=== PATIENT | female | born 1930 | race Caucasian/White ===

== ENCOUNTER 2016-05-20 17:49 | Emergency (ER) | payer OTHER ==
[~2016-05-20 17:49] MED LIST: CELEXA10 MG PO; HYCET1 ML PO; KEPPRA500 MG PO; LAMICTAL100 MG PO; LORAZEPAM1 MG PO; PLAVIX75 MG PO
--- NOTE | 2016-05-20 20:10 | DIAGNOSTIC IMAGING REPORT ---
PROCEDURE: XR CHEST 1 VIEW INDICATION: CONGESTION, initial encounter TECHNIQUE: Portable AP view 07:02 p.m. COMPARISON: Chest x-ray 01/07/2015 and 06/21/2014. FINDINGS: New mild to moderate bibasilar alveolar opacities with small bilateral pleural effusions and mild pulmonary vascular congestion. Heart size at the upper limits of normal. Bony thorax is unremarkable. IMPRESSION: 1. Borderline cardiomegaly with pulmonary vascular congestion, small bilateral pleural effusion and bibasilar pulmonary edema versus pneumonia
--- NOTE | 2016-05-20 22:11 | DIAGNOSTIC IMAGING REPORT ---
PROCEDURE: CTA THORAX WITH CONTRAST INDICATION: COUGH TECHNIQUE: 76 ml of Isovue 370 was injected intravenously and axial images were obtained of the entire thorax with 3D sagittal and coronal MIP reconstructions. COMPARISON: Chest x-ray 05/20/2016 FINDINGS: No evidence of pulmonary emboli. There are coarse interstitial markings with subpleural fibrosis primarily in both lung bases with mild superimposed patchy alveolar opacities. There are also a few small patchy densities in the upper lobes. There is mild mediastinal and moderate bilateral hilar and subcarinal adenopathy. Tiny bilateral pleural effusions. There is no aortic aneurysm or dissection. Coronary atherosclerosis. Normal heart size. Cholecystectomy. Mild degenerative changes of the spine. IMPRESSION: 1. No evidence of pulmonary emboli 2. Bibasilar scarring and fibrosis with superimposed pneumonia 3. Tiny bilateral pleural effusions 4. Results discussed with Dr. Andersen
--- NOTE | 2016-05-20 23:20 | ED ORDER SUMMARY ---
..... Patient: KARYNA UREÑA OrderSheet [facility] VisitID: [id number] [address] [place], [place] [id number] 85y, F Registration Date/Time: 05/20/2016 ORDER SHEET Weight: 43.0 kg (stated) Allergies: Aspirin, Codeine, Demerol, Petroleum products GENERAL ORDERS: Chest 1V Urgent (18:58 05/20/2016 Rafita Maxwell) (19:05 Clement ER Supervisor Long Goods) CBC w Diff Urgent (18:58 05/20/2016 Rafita Maxwell) (Ack 19:14 LNations ER Tech1) (19:16 HOShaughnessy R.N.) CMP Urgent (18:58 05/20/2016 Rafita Maxwell) (Ack 19:14 LNations ER Tech1) (19:16 HOShaughnessy R.N.) UA-Culture if indicated Urgent (18:58 05/20/2016 Rafita Maxwell) (Ack 19:14 LNations ER Tech1) (20:53 HOShaughnessy R.N.) BNP Urgent (18:58 05/20/2016 Rafita Maxwell) (Ack 19:14 LNations ER Tech1) (19:16 HOShaughnessy R.N.) D-Dimer Urgent (18:58 05/20/2016 Rafita Maxwell) (Ack 19:14 LNations ER Tech1) (19:16 HOShaughnessy R.N.) CTA Thorax w Cont (No) (grf > 50) Urgent (21:17 05/20/2016 Zenia Maxwell) (Ack 21:18 Clement ER Supervisor [employer]s) (22:00 MCampbell) MEDICATION ORDERS: IV FLUIDS: IV Saline Lock (18:58 05/20/2016 Rafita Maxwell) (19:17 HOShaughnessy R.N.) IV NS : initial bolus 500 mL (1000 mL/hr), then 1000 mL/hr (NOW) (22:34 05/20/2016 Sarath R.NTigist verbal order read back to Rafita Maxwell) (22:36 Sarath R.N.) IV NS : initial bolus 500 mL (1000 mL/hr), then none - for X1 (NOW) (23:17 05/20/2016 Zenia Maxwell) ORDER SHEET NOTES: This document has not been locked and should not be saved in the medical record.
--- NOTE | 2016-05-20 23:20 | ED NURSING NOTES ---
Clinical Report - Nurses [facility] [address] [place] [address] 05/20/2016 17:50 Patient: KARYNA UREÑA TRIAGE Triage time 1748 PM. Acuity: LEVEL 3. Chief Complaint: (Weakness, diagnosis of Pneumonia). Alert. No acute distress. BARRERA COMA SCORE: [place] Coma Scale: 15- eyes open spontaneously (4); best verbal response- oriented x 4 (5); best motor response- obeys commands (6). --17:57 Porfirio Hernandez R.N. 17:48 05/20/16. BP: 120/64. HR: 101. RR: 16. O2 saturation: 97%. Temp: 98.7 F (oral). Pain level now: 0/10. --17:57 Porfirio Hernandez R.N. Weight: 43 kg stated. Height/Length: 60 inches Per Patient. BMI: 18.5. --17:53 Porfirio Hernandez R.N. Medications Citalopram Hydrobromide Oral 10mg, daily. Keppra Oral 250 mg, 2x a day. LamoTRIgine Oral 25mg, 5 tab 2x daily. LORazepam Oral 0.5 mg, 2x a day. Plavix Oral 75 mg, daily. --17:51 Porfirio Hernandez R.N. Clotrimazole Mouth/Throat. --17:52 Porfirio Hernandez R.N. Allergies Aspirin. Codeine. Demerol. Petroleum products. --17:51 Porfirio Hernandez R.N. History Arrived by private vehicle. Historian: patient. Accompanied by family. Primary physician ([facility]). This started yesterday. ( Patient presents to the ED from her independent living center. Patient was diagnosed with pneumonia yesterday and sent home on antibiotics. Medics were called because patient's weakness is not improving and patient's caregiver dose not feel comfortable medicating patient with antibiotics prescribed.). The patient has had a cough. SOCIAL HX: Never smoker. Alcohol use. (no). History of drug use. (no). --17:57 Porfirio Hernandez R.N. The patient has had weakness. Reports muscle aches. --17:57 Porfirio Hernandez R.N. PROBLEMS: Changed Mental Status. Hematuria. Seizure. Hand Fracture. Contusion. Fall. Tetanus Status. UTI - Urinary Tract Infection. Epilepsy. Immunizations. --17:53 Porfirio Hernandez R.N. Seizure [RuleOut]. --17:53 Porfirio Hernandez R.N. ADDITIONAL SURGERIES: Appendectomy. . Hysterectomy. Throat dilation every 6 months. --17:53 Porfirio Hernandez R.N. Interventions ID band on patient. --17:57 Porfirio Hernandez R.N. PHYSICAL ASSESSMENT To room via stretcher. GENERAL / NEURO / PSYCH: Alert. Oriented X 4. Appears in no acute distress. HEENT: Pupils equal, round and reactive to light. No facial asymmetry noted. RESPIRATORY: Moderate respiratory distress. The patient can speak a few words at a time. Decreased breath sounds diffusely over both lungs. CVS: Normal sinus rhythm noted. Capillary refill less than 2 seconds. Pulses within normal limits. GI / : Abdomen soft and nontender and normal bowel sounds. SKIN: Skin intact. Skin is warm and dry. Normal skin turgor. --17:58 Porfirio Hernandez R.N. NURSING PROGRESS NOTES Reassurance given. Call light placed in reach. Side rails up x 2. Bed placed in lowest position. Brakes of bed on. --17:58 Porfirio Hernandez R.N. 19:17 05/20/2016 Site #1 started via IV in the left forearm with an 20g angiocath; two attempts. Blood drawn: rainbow set. Labeled in the presence of the patient and sent to the lab. Saline lock flushed with 10 mL saline. --19:17 Porfirio Hernandez R.N. The patient reports no complaints and she is calm and resting quietly. Overall patient status is the same- she states feels the same. Call light placed in reach. Side rails up x 2. Bed placed in lowest position. Brakes of bed on. --20:04 Porfirio Hernandez R.N. 20:04 05/20/16. BP: 119/60. HR: 95. RR: 16. O2 saturation: 96%. --20:04 Porfirio Hernandez R.N. 20:53 05/20/16. BP: 120/64. HR: 94. RR: 16. O2 saturation: 97%. Pain level now: 0/10. --20:54 Porfirio Hernandez R.N. Checked patient name and birthdate: patient confirmed. Instructions provided to collect clean catch urine and patient verbalized understanding. Catheterized urine collected with return of charlee-colored cloudy urine; odor is foul-smelling; sample sent to lab for urinalysis and culture. Specimen labeled in the presence of the patient. --20:54 Porfirio Hernandez R.N. The patient reports no complaints and she is calm and resting quietly. RESPIRATORY: No respiratory distress. Breath sounds normal. SKIN: Skin is warm and dry. Skin color within normal limits. --20:54 Porfirio Hernandez R.N. 21:31 05/20/2016 Site #2 started via IV in the right antecubital space with an 20g angiocath, with aseptic technique and good blood return; one attempt. Saline lock flushed with 10 mL saline (Placed for CTA study). --21:41 Malachi Ochoa R.N. Patient transported to CT by stretcher with [place]. --21:42 Malachi Ochoa R.N. 22:31 05/20/2016 Started bag #1 1000 mL IV Fluids IV NS (Saline); at 999 mL/hr over 30 minute(s) via site #2 via IV pump. Allergies verified and confirmed 5 rights. IV patency established. IV site checked: no pain, redness, or swelling. IV flushed thoroughly pre- and post-medication administration. --22:36 Malachi Ochoa R.N. 23:10 05/20/2016 IV Fluids IV NS Discontinued: bag #1 infused. Total amount infused: 500 ml mL. --23:25 Aida Latham R.N. 23:24 05/20/2016 Started bag #1 1000 mL IV Fluids IV NS (Saline); at 999 mL/hr over 30 minute(s) via site #2 via IV pump. Allergies verified and confirmed 5 rights. IV patency established. IV site checked: no pain, redness, or swelling. IV flushed thoroughly pre- and post-medication administration. --23:25 Aida Latham R.N. 23:36 05/20/16. BP: 120/57. HR: 88. RR: 16. O2 saturation: 100% on room air. Pain level now: 0/10. --23:36 Aida Latham R.N. pt assisted on to bedpan. --23:36 Aida Latham R.N. pt voided about 01:50 ml in bedpan. --23:45 Aida Latham R.N. at 23:05. Care transferred and report received (from Malachi Garcia RN). --23:36 Aida Latham R.N. 23:55 05/20/2016 IV Fluids IV NS Discontinued: bag #1 completed. Total amount infused: 500 ml mL. IV patency established. IV site checked: no pain, redness, or swelling. IV flushed thoroughly. --01:06 Aida Latham R.N. DISPOSITION / DISCHARGE Departure time: 0015. Condition at departure: improved. No learning barriers present. Discharge instructions provided and reviewed with the patient and family. Patient verbalized understanding. Written instructions provided in Malay. The patient was discharged by the physician. She was discharged home and accompanied by family. She left the Emergency Department in a wheelchair and via private vehicle. Family member driving. Medication list reviewed and validated with the patient and a relative. --01:07 Aida Latham R.N. 00:15 05/21/16. BP: deferred. HR: deferred. RR: deferred. O2 saturation: deferred. Temp: deferred. Pain level now deferred. --01:07 Aida Latham R.N. 00:15 assisted pt changing back in to street clothes. wheelchaired pt out to car took about 10-15 min. --01:08 Aida Latham R.N. Locked/Released at 05/21/2016 1:09 by Aida Latham R.N.
--- NOTE | 2016-05-20 23:20 | ED ORDER SUMMARY ---
..... Patient: KARYNA UREÑA OrderSheet [facility] VisitID: [id number] [address] [place], [place] [id number] 85y, F Registration Date/Time: 05/20/2016 ORDER SHEET Weight: 43.0 kg (stated) Allergies: Aspirin, Codeine, Demerol, Petroleum products GENERAL ORDERS: Chest 1V Urgent (18:58 05/20/2016 Rafita Maxwell) (19:05 Clement ER Human Resources Benefits Coordinator) CBC w Diff Urgent (18:58 05/20/2016 Rafita Maxwell) (Ack 19:14 LNations ER Tech1) (19:16 HOShaughnessy R.N.) CMP Urgent (18:58 05/20/2016 Rafita Maxwell) (Ack 19:14 LNations ER Tech1) (19:16 HOShaughnessy R.N.) UA-Culture if indicated Urgent (18:58 05/20/2016 Rafita Maxwell) (Ack 19:14 LNations ER Tech1) (20:53 HOShaughnessy R.N.) BNP Urgent (18:58 05/20/2016 Rafita Maxwell) (Ack 19:14 LNations ER Tech1) (19:16 HOShaughnessy R.N.) D-Dimer Urgent (18:58 05/20/2016 Rafita Maxwell) (Ack 19:14 LNations ER Tech1) (19:16 HOShaughnessy R.N.) CTA Thorax w Cont (No) (grf > 50) Urgent (21:17 05/20/2016 Zenia Maxwell) (Ack 21:18 Clement ER Human Resources Benefits Coordinator) (22:00 MCampbell) MEDICATION ORDERS: IV FLUIDS: IV Saline Lock (18:58 05/20/2016 Rafita Maxwell) (19:17 HOShaughnessy R.N.) IV NS : initial bolus 500 mL (1000 mL/hr), then 1000 mL/hr (NOW) (22:34 05/20/2016 Sarath R.NTigist verbal order read back to Rafita Maxwell) (22:36 Sarath R.N.) IV NS : initial bolus 500 mL (1000 mL/hr), then none - for X1 (NOW) (23:17 05/20/2016 Zenia Maxwell) ORDER SHEET NOTES: This document has not been locked and should not be saved in the medical record.
--- NOTE | 2016-05-20 23:20 | ED CLINICAL REPORT ---
Clinical Report - Physicians/Mid Levels [facility] [address] [place] [address] 05/20/2016 17:50 [id number] *This is a preliminary document and is subject to change Time Seen: 1824; initial patient contact. Arrived- By private vehicle. Historian- patient. HISTORY OF PRESENT ILLNESS Chief Complaint: COUGH. This started about 3 days ago and is still present. It was gradual in onset. The illness is described as moderate. The patient has had a cough and chills. No sputum production, difficulty breathing, chest discomfort or pain or fever. No muscle aches. Additional history - No known contact with a sick individual. Similar symptoms previously: None. Recent medical care: The patient was seen recently in a clinic. ( Dx of PNA yesterday, started on Abx, still weak.). REVIEW OF SYSTEMS No nausea, vomiting, pedal edema or calf pain. She has had fatigue. All systems otherwise negative, except as recorded above. PAST HISTORY Changed Mental Status. Hematuria. Seizure. Hand Fracture. Contusion. Fall. Tetanus Status. UTI - Urinary Tract Infection. Epilepsy. Immunizations. Seizure SURGERIES: Appendectomy. . Hysterectomy. Throat dilation every 6 months. Medications: Clotrimazole Mouth/Throat. Citalopram Hydrobromide Oral 10mg, daily. Keppra Oral 250 mg, 2x a day. LamoTRIgine Oral 25mg, 5 tab 2x daily. LORazepam Oral 0.5 mg, 2x a day. Plavix Oral 75 mg, daily. Allergies: Aspirin. Codeine. Demerol. Petroleum products. SOCIAL HISTORY Never smoker. No alcohol use or drug use. ADDITIONAL NOTES The nursing notes have been reviewed with agreement regarding the chief complaint, PMH and patient medications and allergies. PHYSICAL EXAM Vital Signs: 05/20/2016 17:48 BP: 120/64. HR: 101. RR: 16. O2 saturation: 97%. Temp: 98.7 F. Pain level now: 0/10. Have been reviewed. Blood pressure normal. Tachycardic. Respiratory rate normal. Temperature normal. Oxygen saturation normal. Appearance: Alert. No acute distress. Eyes: Eyes normal inspection. ENT: Pharynx normal. Neck: No JVD. CVS: Normal heart rate and rhythm. Heart sounds normal. Respiratory: No respiratory distress. Moderate rales present in the lower third of both lung delgado. No rhonchi, wheezes or prolonged expiration. Abdomen: Soft and nontender. No organomegaly. Skin: Normal skin color. No rash. Extremities: No calf tenderness. No lower extremity edema. Neuro: Oriented X 3. LABS, X-RAYS, AND EKG Laboratory Tests: UA-Culture if indicated: (DYLAN: 05/20/2016 20:51) ( [facility] 05/20/[place] 21:07) Final results Test Result Flag Units (Reference) URINE COLOR YELLOW URINE APPEARANCE CLEAR URINE GLUCOSE NEGATIVE (NEGATIVE) URINE BILIRUBIN NEGATIVE (NEGATIVE) URINE KETONE NEGATIVE (NEGATIVE) URINE SPECIFIC GRAVITY 1.025 (1.010-1.030) URINE PH 6.0 (5.0-8.0) URINE PROTEIN 1+ (NEGATIVE) URINE UROBILINOGEN 0.2 EU/dL (0.2-1.0) URINE NITRITE NEGATIVE (NEGATIVE) URINE BLOOD NEGATIVE (NEGATIVE) URINE LEUK ESTERASE NEGATIVE (NEGATIVE) URINE RBC NONE SEEN rbc/hpf (0-1) URINE WBC 0-1 wbc/hpf (0-1) URINE EPITHELIAL CELLS 0-1 EPI/hpf (0-5) URINE BACTERIA NONE SEEN (NONE SEEN) URINE COMMENT CULT NOT INDICATED 2+ AMORPHOUS1+ MUCUSURINE CULTURES ARE SET-UP BASED ON THE FOLLOWING CRITERIA:POSITIVE NITRITEPOSITIVE LEUKOCYTE ESTERASEGREATER THAN 10 WHITE BLOOD CELLSMODERATE (2+) OR GREATER BACTERIA CBC w Diff: (DYLAN: 05/20/2016 19:13) ( [facility] 05/20/2016 19:22) Final results Test Result Flag Units (Reference) WHITE BLOOD COUNT 8.2 K/uL (4.5-11.5) RED BLOOD COUNT 3.79 L M/uL (4.00-5.20) HEMOGLOBIN 9.9 L gm/dL (12.0-16.0) HEMATOCRIT 30.9 L % (36.0-46.0) MEAN CELL VOLUME 82 fL (80-100) MEAN CORPUSCULAR HGB 26 pg (26-34) MEAN CORPUSCULAR HGB CONC 32 g/dL (31-37) RED CELL DISTRIBUTION WIDTH 14.5 % (11.6-14.8) PLATELET COUNT 320 K/uL (150-400) NEUTROPHIL % 76.6 H % (50-75) LYMPH % 12.4 L % (25-40) MONO % 6.8 % (3-14) EOSINOPHIL % 4.0 % (0-4) BASOPHIL % 0.2 % (0-2) [id number]: (DYLAN: 05/20/2016 19:13) ( [facility] 05/20/2016 19:33) Final results Test Result Flag Units (Reference) D-DIMER QUANTITATIVE 2.64 H ug/mLFEU (0.27-0.52) The primary value of this quantitative assay relates toits negative predictive value (i.e. exclusion) of pulmonaryembolism/deep vein thrombosis/DIC.Elevated levels of d-dimer may also occur with:, age, cancer, inflammation, liver disease,post-op, infection, hematoma, coronary disease, peripheralarteriopathy, bleeding disorders and thrombolytic treatment.Results should be correlated with other clinical andradiological data.Testing Methodology: Latex Immunoassay BNP: (DYLAN: 05/20/2016 19:13) ( [facility] 05/20/2016 19:47) Final results Test Result Flag Units (Reference) B-TYPE NATRIURETIC PEPTIDE 342 H pg/ml (5-100) CMP: (DYLAN: 05/20/2016 19:13) ( [facility] 05/20/2016 19:45) Final results Test Result Flag Units (Reference) GLUCOSE 157 H mg/dL (70-110) BUN 25 H mg/dL (7-18) CREATININE 0.7 mg/dL (0.6-1.3) Estimated GFR >60 mL/min Estimated GFR- >60 mL/min Note: Persistent reduction over 3 months in eGFR<60 mL/min/1.73 m2 defines CKD. Patients with eGFR values>=60 mL/min/1.73 m2 may also have CKD if evidence ofpersistent proteinuria. Additional information may be foundat www.kidney.org. SODIUM 142 mmol/L (136-145) POTASSIUM 4.1 mmol/L (3.5-5.1) CHLORIDE 105 mmol/L (98-107) CARBON DIOXIDE 28 mmol/L (21-32) CALCIUM 8.9 mg/dL (8.5-10.1) TOTAL PROTEIN 6.7 g/dL (6.4-8.2) ALBUMIN 2.4 L g/dL (3.3-5.0) BILIRUBIN, TOTAL 0.3 mg/dL (0.0-1.0) ALKALINE PHOSPHATASE 121 H U/L (46-116) AST (SGOT) 39 H U/L (15-37) ALT (SGPT) 41 U/L (12-78) . PROGRESS AND PROCEDURES Course of Care: 21:42 05/20/16. Case signed out to Dr. Andersen, awaiting CTA of chest. CLINICAL IMPRESSION Bacterial pneumonia. (acute bilateral). Mild dehydration acute bilateral pleural effusions, mild. INSTRUCTIONS (Continue to take your antibiotics as directed). Warnings: GENERAL WARNINGS: Return or contact your physician immediately if your condition worsens or changes unexpectedly, if not improving as expected, or if other problems arise. Specifically return if pain, vomiting, bleeding, breathing difficulty or fever. Your Current Medications: CONTINUE TAKING THE FOLLOWING MEDICATIONS: Citalopram Hydrobromide Oral : 10mg daily. Clotrimazole Mouth/Throat. Keppra Oral : 250 mg 2x a day. LamoTRIgine Oral : 25mg 5 tab 2x daily. LORazepam Oral : 0.5 mg 2x a day. Plavix Oral : 75 mg daily. OTC Medications: Acetaminophen (available over the counter): take according to label instructions. Motrin (available over the counter): take according to label instructions. Follow-up: Return to the emergency department as needed. Follow up with your doctor in three days. Reason for referral: recheck today's concerns. Summary of care provided to patient and family via paper. Screening today revealed the patient's blood pressure to be in the normal range. The patient should follow up with a primary care provider for blood pressure management. Understanding of the discharge instructions verbalized by patient and family. Riccardo Andersen Dr.
--- NOTE | 2016-05-24 16:29 | ED MAR SUMMARY ---
..... Medication Administration Record Formerly [facility] [address] [place] [address] Patient: AKRYNA UREÑA Visit ID: [id number] 85y, F Weight: 43.0 kg Height/Length: 60 in BMI: 18.5 ALLERGIES: Aspirin, Codeine, Demerol, Petroleum products Start 22:31 05/20/2016 Malachi Ochoa RTigistNTigist, Stop 23:10 05/20/2016 Aida Latham R.N. Medication Administered: IV NS (SALINE), Dose: IV Fluids over 30 minute(s), Rate: 999 mL/hr, Dispensed: 1000 mL bag, Site: #2 right AC. Medication Ordered: IV NS : initial bolus 500 mL (1000 mL/hr), then 1000 mL/hr (NOW). Start 23:24 05/20/2016 Aida Latham RCasi, Stop 23:55 05/20/2016 Aida Latham RTigistN. Medication Administered: IV NS (SALINE), Dose: IV Fluids over 30 minute(s), Rate: 999 mL/hr, Dispensed: 1000 mL bag, Site: #2 right AC. Medication Ordered: IV NS : initial bolus 500 mL (1000 mL/hr), then none - for X1 (NOW).
--- NOTE | 2016-05-24 16:29 | ED DISCHARGE INSTRUCTIONS ---
Patient: KARYNA UREÑA General Instructions [facility] VisitID: [id number] [address] [place] [address] 85y, F Registration Date/Time: 05/20/2016 Bacterial pneumonia. (acute bilateral). Mild dehydration acute bilateral pleural effusions, mild. INSTRUCTIONS (Continue to take your antibiotics as directed). Warnings: GENERAL WARNINGS: Return or contact your physician immediately if your condition worsens or changes unexpectedly, if not improving as expected, or if other problems arise. Specifically return if pain, vomiting, bleeding, breathing difficulty or fever. Your Current Medications: CONTINUE TAKING THE FOLLOWING MEDICATIONS: Citalopram Hydrobromide Oral : 10mg daily. Clotrimazole Mouth/Throat. Keppra Oral : 250 mg 2x a day. LamoTRIgine Oral : 25mg 5 tab 2x daily. LORazepam Oral : 0.5 mg 2x a day. Plavix Oral : 75 mg daily. OTC Medications: Acetaminophen (available over the counter): take according to label instructions. Motrin (available over the counter): take according to label instructions. Follow-up: Return to the emergency department as needed. Follow up with your doctor in three days. Reason for referral: recheck today's concerns. Summary of care provided to patient and family via paper. Screening today revealed the patient's blood pressure to be in the normal range. The patient should follow up with a primary care provider for blood pressure management. Understanding of the discharge instructions verbalized by patient and family. ADDITIONAL INFORMATION Pneumonia (Adult) Pneumonia is an infection deep within the lung, in the small air sacs (alveoli). It may be due to a virus or bacteria and is usually treated with an antibiotic. Severe cases require treatment in the hospital. Milder cases can be treated at home. Symptoms usually start to improve during the first2 days of treatment. Home Care: Rest at home for the first 23 days or until you feel stronger. When resuming activity, dont let yourself become overly tired. Avoid exposure to cigarette smoke (yours or others). You may use acetaminophen (Tylenol) or ibuprofen (Motrin, Advil) to control fever or pain, unless another medicine was prescribed. [NOTE: If you have chronic liver or kidney disease or ever had a stomach ulcer or GI bleeding, talk with your doctor before using these medicines.] (Aspirin should never be used in anyone under 18 years of age who is ill with a fever. It may cause severe liver damage.) Your appetite may be poor so a light diet is fine. Keep well hydrated by drinking 68 glasses of fluids per day (water, sport drinks such as Gatorade, sodas without caffeine, juices, tea, soup, etc.). This will help loosen secretions in the lung, making it easier for you to cough up the phlegm (sputum). If you also have heart or kidney disease, check with your doctor before you drink extra amounts of fluids. Finish all antibiotic medicine prescribed, even if you are feeling better after a few days. Follow Up with your doctor in the next 23 days (or as advised) to be sure you are responding properly to the medicine. [NOTE: If you are age 65 or older, or if you have chronic lung disease (asthma, emphysema or COPD), we recommendthe pneumococcal vaccination and a yearlyinfluenzavaccination(flu-shot) every . Ask your doctor about this.] Get Prompt Medical Attention if any of the following occur: Not getting better within the first 48 hours of treatment Increasing shortness of breath or rapid breathing (over 25 breaths/minute) Coughing up blood or increasing chest pain with breathing Fever of 100.4F (38C) oral or higher, not better with fever medication Increasing weakness, dizziness or fainting Increasing thirst or dry mouth Sinus pain, headache or a stiff neck Chest pain not caused by coughing Dehydration (Adult) Dehydration occurs when your body loses too much fluid. This may be the result of vomiting a lot or from diarrhea,sweating a lot, or a high fever. It may also happen if you dont drink enough fluid when youre sick. Misuse of diuretics (water pills) can also be a cause. Symptoms include thirst and feeling dizzy, weak, fatigued, or very drowsy. The diet described below is usually enough to treat most cases. Sometimes you may needmedicine. Home Care Follow these guidelines for home care: Drink at least 12 8-ounce glasses of fluid every day to overcome the dehydration. Fluid may include water; orange juice; lemonade; apple, grape, and cranberry juice; clear fruit drinks; electrolyte replacement and sports drinks; and teas and coffee without caffeine. If you have been diagnosed with a kidney disease, ask your doctor how much and what types of fluids you should drink to prevent dehydration. If you have kidney disease, drinking too much fluid can cause it build up in the your body and be dangerous to your health. If you have fever, muscle aching, or headache from a viral syndrome, you may useacetaminophen or ibuprofen, unless another medicine was prescribed for this.If you have chronic liver or kidney disease or ever had a stomach ulcer or GI bleeding, talk with your doctor before using these medicines. Don't take aspirin if you are younger than 18 and are ill with a fever.Aspirin raises the chance forsevere liver injury. Follow-up care Follow up with your health care provider if you don't get better in the next 24 to 48 hours. When to seek medical care Get prompt medical attention if any of theseoccur: Continued vomiting (cant keep liquids down) Frequent diarrhea (more than 5 times a day); blood (red or black color) or mucus in diarrhea Blood in vomit or stool Swollen abdomen or increasing abdominal pain Weakness, dizziness, or fainting Unusually drowsy or confused Reduced urine output or extreme thirst Fever of 100.4 F (38 C) oral or higher that does not get better with fever medication You have been given the following additional information: Pneumonia (Adult) Dehydration (Adult) (Electronically signed by Riccardo Andersen Dr. 05/24/2016 16:28)
--- NOTE | 2016-05-24 16:29 | ED MED RECONCILIATION SUMMARY ---
Patient: KARYNA UREÑA Medication Reconciliation Report [facility] VisitID: [id number] [address] [place] [address] 85y, F Registration Date/Time: 05/20/2016 Weight: 43.0 kg Height/Length: 60 in. BMI: 18.5 ALLERGIES: Aspirin, Codeine, Demerol, Petroleum products The patient's Home Medications are listed below: CONTINUE TAKING THE FOLLOWING MEDICATIONS: Citalopram Hydrobromide Oral 10mg, daily Clotrimazole Mouth/Throat Keppra Oral 250 mg, 2x a day LamoTRIgine Oral 25mg, 5 tab 2x daily LORazepam Oral 0.5 mg, 2x a day Plavix Oral 75 mg, daily The source(s) of the original Home Medication information: Not obtained. The following Medications were given to the patient in the Emergency Department: IV NS IV Fluids bolus 0, then 999 mL/hr, administered: 05/20/2016 10:31:00 PM IV NS IV Fluids bolus 0, then 999 mL/hr, administered: 05/20/2016 11:24:00 PM The following Medications were prescribed to the patient: Acetaminophen (available over the counter): take according to label instructions. -- Riccardo Andersen Dr. Motrin (available over the counter): take according to label instructions. -- Riccardo Andersen Dr.
--- NOTE | 2016-05-24 16:29 | ED MED RECONCILIATION SUMMARY ---
Patient: KARYNA UREÑA Medication Reconciliation Report [facility] VisitID: [id number] [address] [place] [address] 85y, F Registration Date/Time: 05/20/2016 Weight: 43.0 kg Height/Length: 60 in. BMI: 18.5 ALLERGIES: Aspirin, Codeine, Demerol, Petroleum products The patient's Home Medications are listed below: CONTINUE TAKING THE FOLLOWING MEDICATIONS: Citalopram Hydrobromide Oral 10mg, daily Clotrimazole Mouth/Throat Keppra Oral 250 mg, 2x a day LamoTRIgine Oral 25mg, 5 tab 2x daily LORazepam Oral 0.5 mg, 2x a day Plavix Oral 75 mg, daily The source(s) of the original Home Medication information: Not obtained. The following Medications were given to the patient in the Emergency Department: IV NS IV Fluids bolus 0, then 999 mL/hr, administered: 05/20/2016 10:31:00 PM IV NS IV Fluids bolus 0, then 999 mL/hr, administered: 05/20/2016 11:24:00 PM The following Medications were prescribed to the patient: Acetaminophen (available over the counter): take according to label instructions. -- Riccardo Andersen Dr. Motrin (available over the counter): take according to label instructions. -- Riccardo Andersen Dr.
--- NOTE | 2016-05-24 16:29 | ED MAR SUMMARY ---
..... Medication Administration Record [facility] [address] [place] [address] Patient: KARYNA UREÑA Visit ID: [id number] 85y, F Weight: 43.0 kg Height/Length: 60 in BMI: 18.5 ALLERGIES: Aspirin, Codeine, Demerol, Petroleum products Start 22:31 05/20/2016 Malachi Ochoa RTigistNTigist, Stop 23:10 05/20/2016 Aida Latham R.N. Medication Administered: IV NS (SALINE), Dose: IV Fluids over 30 minute(s), Rate: 999 mL/hr, Dispensed: 1000 mL bag, Site: #2 right AC. Medication Ordered: IV NS : initial bolus 500 mL (1000 mL/hr), then 1000 mL/hr (NOW). Start 23:24 05/20/2016 Aida Latham RCasi, Stop 23:55 05/20/2016 Aida Latham RTigistN. Medication Administered: IV NS (SALINE), Dose: IV Fluids over 30 minute(s), Rate: 999 mL/hr, Dispensed: 1000 mL bag, Site: #2 right AC. Medication Ordered: IV NS : initial bolus 500 mL (1000 mL/hr), then none - for X1 (NOW).
[2016-09-24] MEDS ORDERED: CELEXA10 M1 PO (12:18)
[2016-09-24] MEDS ORDERED: KEPPRA750 MG PO (12:25)
== END 2016-05-21 00:15 | disposition home or self-care (01) ==
LOC: ED SRH 17:49
DX: J15.9 Unspecified bacterial pneumonia (principal); E86.0 Dehydration; G40.909 Epilepsy, unspecified, not intractable, without status epilepticus; Z79.899 Other long term (current) drug therapy; Z79.02 Long term (current) use of antithrombotics/antiplatelets; Z88.5 Allergy status to narcotic agent; Z88.6 Allergy status to analgesic agent
CPT/HCPCS: 90004; 90100; 91320; 91556; 95059

== ENCOUNTER 2016-09-28 09:02 | Day surgery (SDC) | payer OTHER ==
[~2016-09-28] VITALS: Ht 157.5 cm; Wt 43.6 kg
[~2016-09-28 09:02] MED LIST changes: +CELEXA10 M1 PO; +KEPPRA750 MG PO
--- NOTE | 2016-09-28 09:23 | NUR ---
PATIENT ASSESSMENT AND MED/ALLERGY REVIEW COMPLETE. VITALS STABLE. CONSENT SIGNED BY PATIENT AND WITNESSED BY RN. IV STARTED IN R WRIST WITH 1 ATTEMPT. PREOP INSTRUCTIONS DISCUSSED. QUESTIONS ENCOURAGED AND ANSWERED BY RN. WILL CONTINUE TO MONITOR.
--- NOTE | 2016-09-28 09:31 | NUR ---
PT ARRIVED VIA WC WITH DAUGHTER, STOOD FOR WEIGHT-DAUGHTER STATES USES WALKER AT HOME, STABLE ON FEET, PT AOX3, VSS, EKG DONE, IV STARTED, [place], DAUGHTER SETH LEAVING AND CAREGIVER TO TAKE HOME-MARY, RING ON RIGHT HAND TAPED, TOOK MEDS THIS AM WITH A SIP, NPO 8PM 09/27
[2016-09-28] MEDS ORDERED: HYCET1 ML PO (10:28)
--- NOTE | 2016-09-28 10:29 | Provider's Discharge Care Plan ---
Problem, Goal, Plan Problem List 1. STATUS POST EGD WITH SAVORY DILATION OF ESOPHAGUS Goals: Improve function, Therapeutic intervention Instructions: Follow up as needed, Take meds as directed
--- NOTE | 2016-09-28 10:38 | Operative Report ---
Operative Report Date of Surgery: 09/28/16 Preoperate Diagnosis: dysphagia. esophageal stenosis Postoperative Diagnosis: dysphagia. Esophageal stenosis Surgeon: Flex North MD [employer] Surgeon: none Procedure Performed: EGD with fluoroscopy guided savory dilation of the esophagus to 19 mm Anesthesia: Gen. endotracheal Indications: 85-year-old female with chronic esophageal stenosis and intermittent bouts of dysphagia requiring periodic EGD with savory dilation. Last dilation to 17 mm. FINDINGS: Esophageal stenosis. Esophagus dilated under fluoroscopic guidance with savory dilator to 19 mm without resistance. Superficial mucosal tears identified as expected. Surgical Technique: Patient brought to the operating room placed in the left lateral decubitus position. Patient was administered total intravenous anesthesia.. Once anesthesia had taken affect, the posterior pharynx was sprayed using Cetacaine spray. An Olympus fiberoptic video upper GI endoscope was passed in to the patient's posterior pharynx. The esophagus intubated under direct visualization. The scope passed easily down the esophagus through the EG junction which was located approximately at. The scope passed easily through the EG junction into the gastric lumen and eventually into the second third portion of duodenum. On withdrawing the scope, the afore mentioned findings were noted. The scope was withdrawn into the gastric lumen and retroflexed. Good view of the cardia, fundus, EG junction from below, and greater and lesser curvature. The scope was withdrawn across the EG junction where a floppy tip guidewire was introduced through the biopsy channel in place under fluoroscopic guidance into the gastric lumen. The upper GI endoscope was removed leaving the wire in place. Over the wire successive savory dilators were passed across the EG junction from 15 mm to 19 mm. Each dilator was guided under fluoroscopic guidance into its appropriate position. The dilators were kept in position for approximately 3 min. each. After dilation to 19 mm, the wire and the dilator were removed as a unit. The upper GI endoscope was then passed once again, down the esophagus into the gastric lumen and retroflexed good view of the EG junction below was obtained. The aforementioned findings noted. The scope was then completely withdrawn. Patient tolerated procedure well. Patient was transferred to the recovery room in stable condition. There were no intraoperative or anesthetic complications.
--- NOTE | 2016-09-28 10:38 | NUR ---
REC'D FROM OR; SPONT RESP. HOB ELEVATED 30 DEGREES. SLEEPING QUIETLY BUT ROUSES TO VERBAL.
--- NOTE | 2016-09-28 10:43 | DIAGNOSTIC IMAGING REPORT ---
PROCEDURE: XR FLUORO ENDOSCOPE DILATION INDICATION: DYSPHAGIA TECHNIQUE: C-arm fluoroscopy provided to Dr. North for esophageal dilation Fluoroscopy time 1 minute 58 seconds, (18.6 mGy). COMPARISON: 01/03/1916 esophageal dilation FINDINGS: Fluoroscopy was provided for positioning of the balloon in the distal esophagus and at the gastroesophageal junction for esophageal dilation. IMPRESSION: 1. C-arm fluoroscopy for esophageal dilation (performed by Dr. North
--- NOTE | 2016-09-28 10:56 | NUR ---
AWAKE AND COMFORTABLE. GOOD EYE CONTACT.
--- NOTE | 2016-09-28 11:15 | NUR ---
PATIENT BACK FROM OR. VITALS STABLE- DROWSY. WILL CONTINUE TO MONITOR
--- NOTE | 2016-09-28 13:54 | NUR ---
PATIENT DEPARTED SCU AT 1354. VITALS REMAIN STABLE. NO COMPLAINT OF PAIN OR NAUSEA. TOLERATING PO FLUIDS. IV DISCONTINUED. DISCHARGE INSTRUCTIONS DISCUSSED, INCLUDING PAIN MANAGEMENT AND SIGNS/SYMPTOMS TO REPORT. PATIENT AND CAREGIVER VERBALIZED GOOD UNDERSTANDING OF INSTRUCTIONS UPON DISCHARGE.
[2016-09-28 14:09] VITALS: BP 106/56
== END 2016-09-28 13:54 | disposition home or self-care (01) ==
LOC: OR SRH 09:02 → SCU SRH 09:02 → OR SRH 09:30
PROVIDERS: Specialist
PROC: 0D748ZZ Dilation of Esophagogastric Junction, Via Natural or Artificial Opening Endoscopic (ICD-10-PCS; principal; 2016-09-28 09:30)
DX: K22.2 Esophageal obstruction (principal); Z79.01 Long term (current) use of anticoagulants; G40.909 Epilepsy, unspecified, not intractable, without status epilepticus
CPT/HCPCS: 29229; 29240; 50004; 60001; 70002; 80102; 83526